=== PATIENT | female | born 1995 | race Caucasian/White ===

== ENCOUNTER 2017-04-04 16:34 | Emergency (ER) | payer MEDICAID, OTHER ==
[2017-04-04] MEDS ORDERED: HYDROmorphone 0.5 MG/0.5 ML Syringe IVPUSH ONE ×2 (16:49→18:14)
[2017-04-04] MEDS ORDERED: Ondansetron 4 MG/2 ML SDV IVPUSH ONE ×2 (16:49→18:24)
[2017-04-04] MEDS ORDERED: Iopamidol 612 MG/ML 150 ML Bottle IVPUSH ONE (16:54)
--- NOTE | 2017-04-04 16:55 | EDM.PDOC ---
ED HPI GENERAL MEDICAL PROBLEM - General Chief Complaint: Trauma Stated Complaint: PELVIS PAIN Time Seen by Provider: 04/04/17 16:40 Source of Information: Reports: Patient History Limitations: Reports: No Limitations - History of Present Illness INITIAL COMMENTS - FREE TEXT/NARRATIVE: Patient is a 22-year-old female who presents to the ED complaining of left hip pain. Patient states she was riding her horse and was bucked off. Patient states she landed on the left hip. There was no loss consciousness. She did not hit her head at any point. She has no pain to her head,neck, or upper back. Pain is mostly isolated to the left hip. She did have to walk approximately a quarter mile back to her residence prior to coming to the ED. Pain is isolated to the left low back and left hip with no numbness or tingling distally. Again the patient had no LOC. She denies any past medical history and is currently taking no medications. She offers no additional complaints. Pelvic Pain Score (Numeric/FACES): 8 - Related Data Allergies Allergy/AdvReac Type Severity Reaction Status Date / Time Penicillins Allergy Cannot Verified 04/04/17 16:46 Remember Home Meds: Home Meds Multivitamins [Tab-A-Cirilo] 1 tab PO DAILY 04/04/17 [History] Past Medical History - Past Health History Medical/Surgical History: Denies Medical/Surgical History Social & Family History - Tobacco Use Smoking Status *Q: Never Smoker - Recreational Drug Use Recreational Drug Use: No Review of Systems - Review of Systems Review Of Systems: See Below Respiratory: Reports: No Symptoms Cardiovascular: Reports: No Symptoms GI/Abdominal: Reports: No Symptoms Genitourinary: Reports: No Symptoms Musculoskeletal: Reports: Other (left hip). Denies: Neck Pain, Shoulder Pain, Arm Pain, Leg Pain, Foot Pain Skin: Reports: No Symptoms Neurological: Reports: Difficulty Walking (Secondary to pain). Denies: Numbness , Tingling ED EXAM, GENERAL - Physical Exam Exam: See Below Exam Limited By: No Limitations General Appearance: Alert, WD/WN, Moderate Distress Eye Exam: Bilateral Eye: PERRL Ears: Hearing Grossly Normal Nose: Normal Inspection Throat/Mouth: Normal Inspection, Normal Oropharynx, Normal Voice, No Airway Compromise Head: Atraumatic, Normocephalic Neck: Normal Inspection, Supple, Non-Tender, Full Range of Motion. No: Lymphadenopathy (L), Lymphadenopathy (R) Respiratory/Chest: No Respiratory Distress, Lungs Clear, Normal Breath Sounds, No Accessory Muscle Use, Chest Non-Tender Cardiovascular: Normal Peripheral Pulses, Regular Rate, Rhythm, No Murmur Peripheral Pulses: 2+: Radial (L), Radial (R), Posterior Tibial (L) GI/Abdominal: Normal Bowel Sounds, Soft, Non-Tender, No Organomegaly, No Distention Back Exam: Normal Inspection, Decreased Range of Motion (Secondary to low back pain), Paraspinal Tenderness (Along the low back left side), Vertebral Tenderness (Lumbar spine L4-L5) Extremities: Normal Inspection, Normal Range of Motion (Decreased range of motion of the left lower extremity secondary to pain the left hip.), Non-Tender (With palpation of the upper and lower extremities.), No Pedal Edema Neurological: Alert, Oriented, CN II-XII Intact, Normal Cognition, No Motor/ Sensory Deficits Psychiatric: Normal Affect, Normal Mood Skin Exam: Warm, Dry, Intact, Normal Color Course - Vital Signs Last Recorded V/S: Last Vital Signs Temp 97.6 F 04/04/17 16:39 Pulse 97 04/04/17 16:39 Resp 28 H 04/04/17 18:30 BP 104/65 04/04/17 18:30 Pulse Ox 100 04/04/17 21:30 - Orders/Labs/Meds Orders: Active Orders 24 hr Category Date Time Status Abdomen Pelvis w Cont [CT] Stat Exams 04/04/17 16:46 Taken Chest wo Cont [CT] Stat Exams 04/04/17 19:21 Taken Lumbar Spine wo Cont [CT] Stat Exams 04/04/17 16:46 Taken PATIENT RETYPE [BBK] Stat Lab 04/04/17 16:40 Results TYPE AND SCREEN [BBK] Stat Lab 04/04/17 16:40 Results UA W/MICROSCOPIC [URIN] Stat Lab 04/04/17 16:46 Uncollected Sodium Chloride 0.9% [Saline Flush] Med 04/04/17 16:54 Active 10 ml FLUSH ONETIME PRN Medication Orders Sodium Chloride (Saline Flush) 10 ml FLUSH ONETIME PRN PRN Reason: IV FLUSH Last Admin: 04/04/17 17:17 Dose: 10 ml Admin: 04/04/17 17:00 Dose: 10 ml Labs: Laboratory Tests 04/04/17 04/04/17 04/04/17 Range/Units 16:40 16:40 16:40 WBC 13.82 H (3.98-10.04) K/mm3 RBC 4.83 (3.98-5.22) M/mm3 Hgb 14.8 (11.2-15.7) gm/L Hct 44.5 (34.1-44.9) % MCV 92.1 (79.4-94.8) fl MCH 30.6 (25.6-32.2) pg MCHC 33.3 (32.2-35.5) g/dl RDW Std Deviation 43.9 (36.4-46.3) fL Plt Count 363 (182-369) K/mm3 MPV 9.9 (9.4-12.3) fl Neut % (Auto) 71.1 (34.0-71.1) % Lymph % (Auto) 20.0 (19.3-51.7) % [place] % (Auto) 7.6 (4.7-12.5) % Eos % (Auto) 0.4 L (0.7-5.8) Baso % (Auto) 0.3 (0.1-1.2) % Neut # (Auto) 9.84 H (1.56-6.13) K/mm3 Lymph # (Auto) 2.76 (1.18-3.74) K/mm3 [place] # (Auto) 1.05 H (0.24-0.36) K/mm3 Eos # (Auto) 0.05 (0.04-0.36) K/mm3 Baso # (Auto) 0.04 (0.01-0.08) K/mm3 Sodium 144 (136-145) mEq/L Potassium 3.6 (3.5-5.1) mEq/L Chloride 106 (98-107) mEq/L Carbon Dioxide 24 (21-32) mEq/L Anion Gap 17.6 H (5-15) BUN 18 (7-18) mg/dL Creatinine 1.5 H (0.55-1.02) mg/dL Est Cr Clr Drug Dosing 52.49 mL/min Estimated GFR (MDRD) 43 (>60) mL/min BUN/Creatinine Ratio 12.0 L (14-18) Glucose 132 H (74-106) mg/dL Calcium 10.5 H (8.5-10.1) mg/dL Total Bilirubin 0.5 (0.2-1.0) mg/dL AST 45 H (15-37) U/L ALT 31 (14-59) U/L Alkaline Phosphatase 62 (46-116) U/L Total Protein 8.0 (6.4-8.2) g/dl Albumin 4.6 (3.4-5.0) g/dl Globulin 3.4 gm/dL Albumin/Globulin Ratio 1.4 (1-2) Lipase 583 H (73-393) U/L HCG, Qual Negative (NEGATIVE) Blood Type Gel Antibody Screen 04/04/17 Range/Units 16:40 WBC (3.98-10.04) K/mm3 RBC (3.98-5.22) M/mm3 Hgb (11.2-15.7) gm/L Hct (34.1-44.9) % MCV (79.4-94.8) fl MCH (25.6-32.2) pg MCHC (32.2-35.5) g/dl RDW Std Deviation (36.4-46.3) fL Plt Count (182-369) K/mm3 MPV (9.4-12.3) fl Neut % (Auto) (34.0-71.1) % Lymph % (Auto) (19.3-51.7) % [place] % (Auto) (4.7-12.5) % Eos % (Auto) (0.7-5.8) Baso % (Auto) (0.1-1.2) % Neut # (Auto) (1.56-6.13) K/mm3 Lymph # (Auto) (1.18-3.74) K/mm3 [place] # (Auto) (0.24-0.36) K/mm3 Eos # (Auto) (0.04-0.36) K/mm3 Baso # (Auto) (0.01-0.08) K/mm3 Sodium (136-145) mEq/L Potassium (3.5-5.1) mEq/L Chloride (98-107) mEq/L Carbon Dioxide (21-32) mEq/L Anion Gap (5-15) BUN (7-18) mg/dL Creatinine (0.55-1.02) mg/dL Est Cr Clr Drug Dosing mL/min Estimated GFR (MDRD) (>60) mL/min BUN/Creatinine Ratio (14-18) Glucose (74-106) mg/dL Calcium (8.5-10.1) mg/dL Total Bilirubin (0.2-1.0) mg/dL AST (15-37) U/L ALT (14-59) U/L Alkaline Phosphatase (46-116) U/L Total Protein (6.4-8.2) g/dl Albumin (3.4-5.0) g/dl Globulin gm/dL Albumin/Globulin Ratio (1-2) Lipase (73-393) U/L HCG, Qual (NEGATIVE) Blood Type A POSITIVE Gel Antibody Screen Negative Meds: Medications Generic Name Dose Route Start Last Admin Trade Name Freq PRN Reason Stop Dose Admin Sodium Chloride 10 ml 04/04/17 16:54 04/04/17 17:17 Saline Flush FLUSH 10 ml ONETIME PRN Administration IV FLUSH Discontinued Medications Generic Name Dose Route Start Last Admin Trade Name Freq PRN Reason Stop Dose Admin Diphenhydramine HCl 50 mg 04/04/17 21:28 04/04/17 21:42 Benadryl IVPUSH 04/04/17 21:29 Not Given ONETIME ONE Fentanyl 75 mcg 04/04/17 19:30 04/04/17 19:36 Sublimaze IVPUSH 04/04/17 19:31 75 mcg ONETIME ONE Administration Fentanyl 100 mcg 04/04/17 21:25 04/04/17 21:42 Sublimaze IVPUSH 04/04/17 21:26 Not Given ONETIME ONE Fentanyl 100 mcg 04/04/17 21:28 04/04/17 21:42 Sublimaze IVPUSH 04/04/17 21:29 Not Given ONETIME ONE Hydromorphone HCl 0.5 mg 04/04/17 16:49 04/04/17 16:58 Dilaudid IVPUSH 04/04/17 16:50 0.5 mg ONETIME ONE Administration Hydromorphone HCl 0.5 mg 04/04/17 18:14 04/04/17 18:26 Dilaudid IVPUSH 08/13/17 18:15 Not Given ONETIME ONE Sodium Chloride 1,000 mls @ 999 mls/hr 04/04/17 18:15 04/04/17 18:20 Normal Saline IV 04/04/17 19:15 999 mls/hr ONETIME ONE Administration Sodium Chloride 1,000 mls @ 999 mls/hr 04/04/17 19:28 04/04/17 19:28 Normal Saline IV 04/04/17 20:28 999 mls/hr ONETIME ONE Administration Iopamidol 125 ml 04/04/17 16:54 04/04/17 17:17 Isovue-300 (61%) IVPUSH 04/04/17 16:55 125 ml ONETIME ONE Administration Lorazepam 0.5 mg 04/04/17 20:47 04/04/17 20:53 Ativan IVPUSH 04/04/17 20:48 0.5 mg ONETIME ONE Administration Morphine Sulfate 4 mg 04/04/17 18:23 04/04/17 18:32 Morphine IVPUSH 04/04/17 18:24 4 mg ONETIME ONE Administration Ondansetron HCl 4 mg 04/04/17 16:49 04/04/17 16:57 Zofran IVPUSH 04/04/17 16:50 4 mg ONETIME ONE Administration Ondansetron HCl 4 mg 04/04/17 18:24 04/04/17 18:28 Zofran IVPUSH 04/04/17 18:25 4 mg ONETIME ONE Administration Orphenadrine Citrate 100 mg 04/04/17 18:53 04/04/17 19:14 Norflex PO 04/04/17 18:54 100 mg ONETIME ONE Administration - Re-Assessments/Exams Free Text/Narrative Re-Assessment/Exam: Peripheral IV has been established. Ordered Dilaudid 0.5 mg IVP and Zofran 4 mg IVP. Initial labs and studies include CBC, chem 14, lipase, hCG qualitative, UA , CT the abdomen and pelvis with IV contrast, and lumbar spine without contrast. Labs reviewed: White blood cell count 13.82, platelets 363, hemoglobin is 14.8, sodium 144, potassium 3.6, creatinine 1.5, glucose 132, calcium 10.5, AST 45, lipase is 583, hCG was negative. 04/04/17 18:16 Still waiting for results of CT of the abdomen and pelvis. Patient's pain came back. Ordered Dilaudid 0.5 mg IVP. Reviewed initial labs 04/04/17 18:23 Per nursing staff patient gets nauseous with dilaudid. Ordered morphine [address] of the lumbar spine without IV contrast impression male in displaced fracture of the left L3 transverse process. No subluxation. Otherwise unremarkable lumbar spine CT without contrast. 04/04/17 18:55 Dr Burris, no concerns at this time with lipase. Suggests repeat in the a.m. Admit to hospitalists with ortho consulted in the a.m. Admit for pain control and OT/PT. CT of the abdomen and pelvis: No acute traumatic injury of the solid or hollow abdominal pelvic viscera. Minimally displaced fracture of the left L3 transverse process. Tiny lucency along the right mediastinum adjacent to the esophagus at the lung bases which a risk present a tiny pneumothorax. Considered chest CT for further evaluation very small amount of physiological normal fluid in the pelvis. CT of the chest without contrast ordered. 04/04/17 19:[address] Da Silva. She requests ortho be consulted about L3 transverse process injury. Called [facility] and spoke with Dr. Larios. Dr. Larios recommends pain control, ot/pt, referral to Dr. Gramajo [facility] for reevaluation. 04/04/17 19:32 Patient has remained normotensive. Heart rate has fluctuated from 98-116. Currently the patient's heart rates 111. Blood pressure is 120/85. SPO2 is 100%. 04/04/17 20:[address] of [address] of the chest with Dr. Burris. No concerns at this point. Admit to hospitalists consult him as needed. 04/04/17 20:[address] Da Silva she suggests transferring patient to [place]. Ortho is not available here after Wednesday. [address] with patient and Aunt. Requests to be transferred to [facility]. Vital signs 131/78 HR 108 SPO2 100%. 2051 Called [employer] [facility] and spoke with Dr. Linder fermentation operator Trauma Surgeon. 04/04/17 21:26 Patient was moved from laying on her right side to her back. She tolerated this okay. Pain is increased. It has been trending upward. Order fentanyl 100 g IVP. She's tolerated all pain medications at this time. 04/04/17 21:29 Per nursing patient has a rash to her cheeks and chin. Per patient. No airway compromise or sensation throat is swelling shut. Face is itchy after receiving dilaudid. Decreased fentanyl dose from 100mcg to 75mcq IVP. Ordered benadryl 50mg IVP. 04/04/17 21:37 Reassessment, patient asleep on her back. O2 sats 86 % on room air. Comes up with awaking patient and telling her to take a deep breath. O2 applied via NC. Rash to face not related to urticaria. Discontinued fentanyl and benadryl. Patient is resting comfortably with no movement. Departure - Departure Time of Disposition: 22:12 Disposition: DC/Tfer to [facility] 02 Condition: Fair Clinical Impression: Pneumomediastinum, Intractable back pain Lumbar transverse process fracture Qualifiers: Encounter type: initial encounter Fracture type: closed Qualified Code(s): S32.009A - Unspecified fracture of unspecified lumbar vertebra, initial encounter for closed fracture Contusion of hip, left Qualifiers: Encounter type: initial encounter Qualified Code(s): S70.02XA - Contusion of left hip, initial encounter - Discharge Information Referrals: PCP,Not In Area [Primary Care Provider] - Forms: ED Department Discharge - My Orders Last 24 Hours: My Active Orders 04/04/17 16:40 PATIENT RETYPE [BBK] Stat TYPE AND SCREEN [BBK] Stat 04/04/17 16:46 Abdomen Pelvis w Cont [CT] Stat Lumbar Spine wo Cont [CT] Stat UA W/MICROSCOPIC [URIN] Stat 04/04/17 16:54 Sodium Chloride 0.9% [Saline Flush] 10 ml FLUSH ONETIME PRN 04/04/17 19:21 Chest wo Cont [CT] Stat - Assessment/Plan Last 24 Hours: My Active Orders 04/04/17 16:40 PATIENT RETYPE [BBK] Stat TYPE AND SCREEN [BBK] Stat 04/04/17 16:46 Abdomen Pelvis w Cont [CT] Stat Lumbar Spine wo Cont [CT] Stat UA W/MICROSCOPIC [URIN] Stat 04/04/17 16:54 Sodium Chloride 0.9% [Saline Flush] 10 ml FLUSH ONETIME PRN 04/04/17 19:21 Chest wo Cont [CT] Stat
[2017-04-04] MEDS: Sodium Chloride 0.9% 10 ML Syringe FLUSH PRN ×2 (17:00→17:17)
[2017-04-04] MEDS ORDERED: Sodium Chloride 0.9% 1,000 ML IV ONE ×2 (18:15→19:28)
[2017-04-04] MEDS ORDERED: Morphine 4 MG/ML Syringe IVPUSH ONE (18:23)
[2017-04-04 18:35] VITALS: BP 104/65
[2017-04-04] MEDS ORDERED: Orphenadrine 100 MG Tab.ER PO ONE (18:53)
[2017-04-04] MEDS ORDERED: fentaNYL 100 MCG/2 ML SDV IVPUSH ONE ×3 (19:30→21:28)
[2017-04-04] MEDS ORDERED: LORazepam 2 MG/ML MDV IVPUSH ONE (20:47)
[2017-04-04] MEDS ORDERED: diphenhydrAMINE 50 MG/ML SDV IVPUSH ONE (21:28)
--- NOTE | 2017-04-05 10:29 | CT ---
CT chest Technique: Multiple axial sections through the chest were obtained. Intravenous contrast was not utilized. Contrast has previously been given for abdominal and pelvic CT exam. Findings: Mediastinum and hilar regions show no discrete abnormality. No axillary adenopathy is seen. Mediastinal air is seen. Very minimal loculated pneumothorax is seen within the medial and posterior right lung base. No additional pneumothorax is seen. No pleural effusions are noted. No pulmonary contusion is seen. Bone window settings were reviewed which show no discrete rib fracture. Thoracic spine shows no discrete abnormality. Reconstructed sagittal images show the sternum to appear intact. Impression: 1. Pneumomediastinum. Minimal loculated right sided pneumothorax within the posterior and medial chest. 2. No additional abnormality is appreciated on noncontrast CT study of the chest. Diagnostic code #3 I agree with preliminary report issued by [employer] ([facility] preliminary report dictated on 04/04/17, 9:17 PM Central Time)
--- NOTE | 2017-04-05 10:29 | CT ---
CT lumbar spine Technique: Multiple axial sections were obtained through the lumbar spine. Reconstructed sagittal and coronal images were reviewed. Comparison: No prior lumbar spine imaging. Findings: Vertebral body heights and disc spaces are maintained. Posterior discs are preserved with no traumatic disc herniation. Incidental Schmorl's node deformity seen within the superior endplate of T11. Minimally displaced fracture noted within the left transverse process of L3. No additional fracture is appreciated within the lumbar spine. No central canal stenosis or neural foraminal stenosis is seen. Impression: 1. Minimally displaced fracture within the left L3 transverse process. 2. Other incidental finding as noted above. Diagnostic code #3 I agree with preliminary report issued by [facility] [facility] ([facility] preliminary report dictated on 04/04/17, 7:39 PM Central Time)
--- NOTE | 2017-04-05 10:29 | CT ---
CT abdomen and pelvis Technique: Multiple axial sections were obtained from above the dome of the diaphragm inferiorly through the pubic symphysis. Intravenous contrast was utilized. No oral contrast has been given. Delayed images were obtained to the bladder. Comparison: No previous abdominal imaging. Findings: Minimal amount of pleural air is seen along the lower posterior and medial right lower lung compatible with minimal pneumothorax. Liver shows no focal parenchymal abnormality. Spleen appears within normal limits. Adrenal glands show no nodule. Kidneys show symmetric contrast enhancement without hydronephrosis or mass. Pancreas appears within normal limits. Gallbladder shows no calcified gallstones. Aorta and iliac vessels show no aneurysmal dilatation. No retroperitoneal adenopathy or mesenteric abnormalities are seen. No pelvic mass or adenopathy is seen. Minimal free fluid within the pelvis is seen which is likely physiologic. Delayed images show contrast within the bladder. Bone window settings were reviewed which show a minimally displaced fracture within the left transverse process of L3. Bony pelvis appears intact without fracture. Impression: 1. Very tiny pneumothorax within the posterior and medial right lower lung. 2. Slightly displaced fracture within the left L3 transverse process. 3. No other acute abnormality is identified on CT study of the abdomen and pelvis. Diagnostic code #3 I agree with preliminary report issued by [employer] ([facility] preliminary report dictated on 04/04/17, 7:58 PM Central Time)
== END 2017-04-04 22:10 ==
LOC: EDBD 16:34 → JD.ED 16:34
DX: S32.039A Unspecified fracture of third lumbar vertebra, initial encounter for closed fracture (principal); S70.02XA Contusion of left hip, initial encounter; J98.2 Interstitial emphysema; M54.9 Dorsalgia, unspecified; V80.010A Animal-rider injured by fall from or being thrown from horse in noncollision accident, initial encounter; Z88.0 Allergy status to penicillin
CPT/HCPCS: 36415; 71250; 72131; 74177; 80053; 83690; 84703; 85025; 86850; 86900; 86901; 96361; 96374; 96375; 96376; 99285; A9270; J1170; J2060; J2270; J2405; J3010; J7040; J7050; Q9967; 99284

== ENCOUNTER 2022-10-20 08:28 | Emergency (ER) | payer OTHER ==
[2022-10-20] MEDS ORDERED: Sodium Chloride 0.9% 1,000 ML IV STA (08:44)
[2022-10-20] MEDS ORDERED: Ondansetron 4 MG/2 ML SDV IVPUSH ONE (08:44)
[2022-10-20] MEDS ORDERED: Sodium Chloride 0.9% 10 ML Syringe FLUSH PRN (08:44)
[2022-10-20 12:21] VITALS: BP 120/78; PULSE 90
== END 2022-10-20 10:40 | disposition home or self-care (01) ==
LOC: JD.ED 08:28
DX: T37.5X1A Poisoning by antiviral drugs, accidental (unintentional), initial encounter (principal)
CPT/HCPCS: 96361; 96374; 99283; J2405; J3490; J7030; 99284

== ENCOUNTER 2024-07-13 08:51 | Inpatient (IN) | payer OTHER ==
[~2024-07-13 08:51] MED LIST: Bupivacaine 0.25% 10 ML SDV ONE; Lidocaine 2% with EPINEPHrine 1:200,000 20 ML SDV ONE; Ropivacaine 0.2% PF 2 MG/ML 20 ML SDV ONE; Sodium Chloride 0.9% 10 ML SDV ONE
[2024-07-13 14:25] LABS: BASOPHILS PERCENT AUTO 0.2 % (0.0-1.0); EOSINOPHILS ABSOLUTE AUTO 0.3 K/mm3 (0.0-0.4); EOSINOPHILS PERCENT AUTO 2.7 % (0.0-6.0); HEMATOCRIT 38.8 % (37.0-47.0); HEMOGLOBIN 12.9 gm/dl (12.0-16.0); IMMATURE GRAN ABSOLUTE AUTO 0.14 K/mm3 (0.00-0.05); IMMATURE GRAN PERCENT AUTO 1.1 % (0.0-0.4); LYMPHOCYTES ABSOLUTE AUTO 2.3 K/mm3 (1.0-4.8); LYMPHOCYTES PERCENT AUTO 18.8 % (24.0-44.0); MEAN CORPUSCULAR HEMOGLOBIN 29.4 pg (28.0-32.0); MEAN CORPUSCULAR HGB CONC 33.2 g/dl (32.0-36.0); MEAN CORPUSCULAR VOLUME 88.4 fl (83.0-99.0); MEAN PLATELET VOLUME 10.7 fl (9.4-12.3); MONOCYTES ABSOLUTE AUTO 1.1 K/mm3 (0.0-0.8); MONOCYTES PERCENT AUTO 8.8 % (0.0-8.0); NEUTROPHILS ABSOLUTE AUTO 8.5 K/mm3 (1.8-7.7); NEUTROPHILS PERCENT AUTO 68.4 % (41.0-71.0); PLATELET COUNT,PLT 265 K/mm3 (150-400); RED BLOOD CELL COUNT 4.39 M/mm3 (4.10-5.30); WHITE BLOOD CELL COUNT,WBC 12.44 K/mm3 (3.9-11.3)
[2024-07-13 14:49] LABS: CREATININE 0.8 mg/dL (0.55-1.02); EST CRCL DRUG DOSING (CG) 92.53 mL/min; URIC ACID 5.9 mg/dL (2.6-6.0)
[2024-07-13 14:58] LABS: CREATININE,URINE RAND 44.1 mg/dL (30.0-125.0)
[2024-07-13] MEDS ORDERED: Lidocaine 1% 50 ML MDV INJECT PRN (15:04)
[2024-07-13] MEDS ORDERED: Oxytocin/0.9 % Sodium Chloride 30 UNIT/500 ML BAG IV SCH (15:15)
[2024-07-13 15:18] LABS: PROTEIN,URINE RANDOM < 6.0 mg/dL (0.0-11.8)
[2024-07-13] MEDS: Misoprostol 25 MCG (1/4 of 100 MCG) Tab VAG ONE (16:06)
[2024-07-13] MEDS ORDERED: diphenhydrAMINE 50 MG/ML SDV IVPUSH PRN (17:49)
[2024-07-13] MEDS: Misoprostol 25 MCG (1/4 of 100 MCG) Tab VAG PRN (19:57)
[2024-07-14] MEDS: Lactated Ringers 1,000 ML IV SCH (00:10)
[2024-07-14] MEDS: Oxytocin/0.9 % Sodium Chloride 30 UNIT/500 ML BAG IV SCH (00:14)
[2024-07-14] MEDS: Acetaminophen 325 MG Tab PO ONE (00:23)
[2024-07-14] MEDS: Bupivacaine/fentaNYL/NS 100 ML Bag EPIDUR PRN (03:43)
[2024-07-14] MEDS: fentaNYL 100 MCG/2 ML SDV EPIDUR PRN (03:44)
[2024-07-14] MEDS: Nalbuphine 10 MG/1 ML Vial IVPUSH PRN (05:09)
[2024-07-14] MEDS: Ondansetron 4 MG/2 ML SDV IVPUSH PRN (05:15)
[2024-07-14] MEDS: fentaNYL 100 MCG/2 ML SDV IVPUSH PRN (05:54)
[2024-07-14] MEDS: ePHEDrine 50 MG/ML SDV IVPUSH PRN (07:27)
[2024-07-14] MEDS ORDERED: Acetaminophen 325 MG Tab PO PRN (10:09)
[2024-07-14] MEDS: Witch Hazel Medicated Pads 40/Jar TOP PRN (10:29)
[2024-07-14] MEDS: Benzocaine/Menthol 20%-0.5% Spray 78 GM Cannister TOP PRN (10:29)
[2024-07-14] MEDS: Ibuprofen 600 MG Tab PO SCH (18:42)
[2024-07-15] MEDS: Docusate Sodium 100 MG Cap PO PRN (10:58)
[2024-07-16 14:08] VITALS: BP 142/97; PULSE 107
== END 2024-07-16 14:00 | disposition home or self-care (01) | DRG 807 ==
LOC: JD.OB 08:51 → OBSVTOIN 07-14 08:51 → JD.OB 07-14 08:52
PROVIDERS: ADMIT Obstetrics & Gynecology; ATTEND Obstetrics & Gynecology
PROC: 10E0XZZ Delivery of Products of Conception, External Approach (ICD-10-PCS; principal; 2024-07-14)
PROC: 0KQM0ZZ Repair Perineum Muscle, Open Approach (ICD-10-PCS; 2024-07-14)
PROC: 10907ZC Drainage of Amniotic Fluid, Therapeutic from Products of Conception, Via Natural or Artificial Opening (ICD-10-PCS; 2024-07-14)
PROC: 3E033VJ Introduction of Other Hormone into Peripheral Vein, Percutaneous Approach (ICD-10-PCS; 2024-07-14)
PROC: 3E0P7VZ Introduction of Hormone into Female Reproductive, Via Natural or Artificial Opening (ICD-10-PCS; 2024-07-14)
PROC: 0U7C7ZZ Dilation of Cervix, Via Natural or Artificial Opening (ICD-10-PCS; 2024-07-14)
PROC: 3E0R3BZ Introduction of Anesthetic Agent into Spinal Canal, Percutaneous Approach (ICD-10-PCS; 2024-07-14)
PROC: 00HU33Z Insertion of Infusion Device into Spinal Canal, Percutaneous Approach (ICD-10-PCS; 2024-07-14)
DX: O13.4 Gestational [pregnancy-induced] hypertension without significant proteinuria, complicating childbirth (principal); Z37.0 Single live birth; O70.1 Second degree perineal laceration during delivery; Z3A.38 38 weeks gestation of pregnancy; Z88.0 Allergy status to penicillin; Z91.013 Allergy to seafood; Z98.890 Other specified postprocedural states; Z90.89 Acquired absence of other organs
CPT/HCPCS: 36415; 51701; 59025; 59409; 82565; 82570; 83615; 84156; 84450; 84460; 84520; 84550; 85025; 86592; 86850; 86900; 86901; A9270-GY; C1726; J0665; J2300; J2405; J2795; J3010; J3490; J7120; J7999